=== PATIENT | male | born 1965 | race Two or more races ===

== ENCOUNTER 2024-10-02 11:19 | Emergency (ER) | payer MEDICAID, SELFPAY ==
[2024-10-02 11:20] VITALS: BMI 31.8
--- NOTE | 2024-10-02 11:30 | XR_ITS ---
Examination: Duplex scan of the lower extremity, unilateral left Date and time of exam: October 02, 2024 1222 hours INDICATIONS: Left leg swelling beginning 3 days ago Technique: Duplex scan of the extremity veins using B-mode/grayscale imaging and Doppler spectral analysis and color flow Attention is directed to internal echogenicity, compression and augmentation involving these veins, color flow assessment, spectral analysis Findings: Major deep venous structures in the extremity demonstrate normal course and caliber. There is no evidence of deep vein thrombosis. Normal color flow and spectral analysis Impression: Negative for DVT..
[2024-10-02 11:36] VITALS: BP 133/85; PULSE 81; RESP 18; TEMP 37; O2SAT 97
[2024-10-02 12:26] LABS: Basophils # (Auto) 0.0 Thou/mm3 (0.0-0.2); Basophils % (Auto) 1 % (0-2.5); Eosinophils # (Auto) 0.1 Thou/mm3 (0.0-0.5); Eosinophils % (Auto) 1 % (0-10); Hematocrit 42.4 % (41.0-53.0); Hemoglobin 14.4 g/dL (13.5-16.0); Immature Granulocytes Auto 0.02 Thou/mm3 (0.00-0.00); Lymphocytes # (Auto) 1.5 Thou/mm3 (1.0-4.8); Lymphocytes % (Auto) 24 % (10-50); Mean Corpuscular HGB Conc 34.0 g/dl (31.0-37.0); Mean Corpuscular Hemoglobin 29.6 pg (25.0-35.0); Mean Corpuscular Volume 87 fL (80-100); Monocytes # (Auto) 0.8 Thou/mm3 (0.0-0.8); Monocytes % (Auto) 12 % (0-12); Neutrophils # (Auto) 3.9 Thou/mm3 (1.8-7.7); Neutrophils % (Auto) 62 % (37-80); Nucleated Red Blood Cell # 0.00 Thou/mm3 (0.00-0.00); Nucleated Red Blood Cell % 0 /100 WBC (0); Platelet Count 229 Thou/mm3 (140-440); RDW Standard Deviation 40.8 fL (35.1-43.9); Red Blood Count 4.86 Miln/mm3 (4.50-5.90); White Blood Count 6.3 Thou/mm3 (3.8-10.6)
[2024-10-02 12:45] LABS: INR 1.0 (0.9-1.3); Partial Thromboplastin Time 29.1 Seconds (22.0-36.0); Prothrombin Time 11.2 Seconds (9.0-12.2)
[2024-10-02 12:54] LABS: Alanine Aminotransferase 20 U/L (10-49); Albumin, Serum 4.5 gm/dL (3.5-5.0); Albumin/Globulin Ratio 1.5 (1.2-2.2); Alkaline Phosphatase 78 U/L (46-116); Anion Gap 10 (7-16); Aspartate Amino Transferase 18 U/L (0-34); BUN/Creatinine Ratio 8 Ratio (12-20); Bilirubin,Total 0.4 mg/dL (0.3-1.2); Blood Urea Nitrogen 9 mg/dL (9-23); Calcium 9.4 mg/dL (8.3-10.6); Calcium (Corrected) 9.4 mg/dL (8.5-10.1); Carbon Dioxide 27.9 mMol/L (20.0-31.0); Chloride 103 mMol/L (98-107); Creatinine (Component) 1.1 mg/dL (0.6-1.3); Estimated Creatinine Clearance 78.5 mL/min (>60); Globulin 3.0 gm/dL (2.3-3.5); Glucose 95 mg/dL (74-106); Osmolality,Calculated 279 (275-295); Potassium 4.1 mMol/L (3.4-5.1); Sodium 141 mMol/L (136-145); Total Protein 7.5 gm/dL (5.7-8.2); eGFR > 60 See Note
--- NOTE | 2024-10-02 13:13 | EDNOTE_ITS ---
<Statement entered by Olivia Martínez MD - 10/03/24 07:10> As co-signing physician, I was present and available for consult prn. I concur with the plan and care as documented by the midlevel provider. ED General RME/HPI General Chief complaint: General Adult/Misc Complain Stated complaint: R/O BLOOD CLOT L) THIGH; SENT BY PCP IN CLINIC Time Seen by Provider: 10/02/24 11:27 Arrival date/time: 10/02/24 11:19 CC: Left upper inner thigh redness and tenderness to palpation HPI ongoing for the past 3 to 4 days. 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 Patient denies any calf pain or knee pain does not on any blood thinners no other complaints at this time including shortness of breath chest pain or difficulty breathing Related Data Previous Rx's ?Medication ?Instructions ?Recorded [id number]-[id number] 250 1 tab PO TID PRN he adache #20 tabs 07/28/21 mg-250 mg-65 mg tablet (Migraine Formula) ibuprofen 800 mg tablet 800 mg PO TID PRN pain #30 t abs 05/28/23 tamsulosin 0.4 mg capsule (Flomax) 0.4 mg PO QDAY #14 caps 05/28/23 prednisone 20 mg tablet See Taper PO BID 3 days #6 t abs 10/02/24 Allergies Allergy/AdvReac Type Severity Reaction Status Date / Time No Known Allergies Allergy Verified 10/02/24 11:22 Review of Systems Review of Systems Narrative Review of Systems: GEN: No fever, no chills, no weight loss EYES: No discharge, no visual changes, no pain HEENT: No ear pain, no congestion, no sore throat PULM: No shortness of breath, no cough, no congestion CV: No chest pain, no dyspnea on exertion, no palpitations GI: No nausea, no vomiting, no diarrhea, no pain, no constipation : No frequency, no urgency, no dysuria MUSC/SKEL: No joint pain, no back pain SKIN: No rash PSYCH: No hallucinations, no depression HEME/LYMPH: No easy bleeding or bruising tendencies NEURO: No weakness, no headache Past Medical History Past Medical History CARDIAC: Positive Hypertension; Negative Cardiac Disorders or Congestive Heart Failure RESPIRATORY: Negative Chronic Obstructive Pulmonary Disease (COPD) or Asthma GENITOURINARY: Negative Renal Disease ENDOCRINE: Negative Diabetes Mellitus Type 1 or Diabetes Mellitus Type 2 HEMATOLOGIC: Negative Sickle Cell Disease Social History SMOKING STATUS: Never smoker ED Exam Narrative Physical exam: [General: Obese not in cot no acute distress Head normocephalic HEENT: Within acceptable limits Neck is supple nontender Chest equal chest rise nontender to palpation Respiratory: Clear to auscultation no wheezes crackles or rubs CV: Rate rhythm is regular no murmurs rubs or clicks Abdomen is distended secondary to body habitus soft nontender no masses positive bowel sounds all 4 quadrants Back: No CVA tenderness no spinous process tenderness from cervical spine thoracic and lumbar spine Skin: Small circular irregular pattern of mildly erythematous skin that is tender to palpation on the left medial thigh no induration no masses appreciated underneath no streaking. Otherwise skin is intact no petechiae rash induration ulceration or crepitus Extremities: Moving all extremity against resistance cap refill less than 2 seconds neurosensory intact Neuro: Awake alert oriented x3 Glascow coma 15 no focal deficits] Course Quality Measures none Orders Category Date Time Status US venous doppler LE LT Stat Exams 10/02/24 11:30 Completed CBC Stat Lab 10/02/24 11:49 Completed CMP [Comprehensive Metabolic Panel] Stat Lab 10/02/24 11:49 Completed PT [Prothrombin Time with INR] Stat Lab 10/02/24 11:49 Completed PTT [Partial Thromboplastin Time] Stat Lab 10/02/24 11:49 Completed Vital Signs Vital signs: Vital Signs Temperature 98.6 F 10/02/24 11:36 Pulse Rate 81 10/02/24 11:36 Respiratory Rate 18 10/02/24 11:36 Blood Pressure 133/85 H 10/02/24 11:36 Pulse Oximetry (%) 97 10/02/24 11:36 Oxygen Delivery Method Room Air 10/02/24 11:36 Discharge Plan Plan Patient Disposition: HOME (Self Care) Patient condition on transfer: Stable Prescriptions/Referrals Prescriptions/Med Rec: New prednisone 20 mg tablet See Taper PO BID 3 Days Qty: 6 0RF Taper: Prednisone Taper 20 mg DAILY for 2 Days and 0 Hour 10 mg DAILY for 2 Days and 0 Hour 5 mg DAILY for 7 Days and 0 Hour No Action Migraine Formula 250-250-65 mg tablet 1 tab PO TID PRN (Reason: headache ) Qty: 20 0RF tamsulosin [Flomax] 0.4 mg capsule 0.4 mg PO QDAY Qty: 14 0RF ibuprofen 800 mg tablet 800 mg PO TID PRN (Reason: pain) Qty: 30 0RF Referrals: Dragan Kahn MD [Primary Care Provider] - In 1 week Problem List Clinical Impression: Rash Patient/Caregiver Discharge Instructions Print Language: Irish Stand Alone Forms: Kinga Award Info., Work/School Release, Patient Portal Info Letter PA/SKIP OPERATOR Supervising Physician PA/SKIP OPERATOR Supervising Physician: Kwabena Herrera ENP [facility] Clinical Information Provided by patient Medical Records Reviewed [facility] Meds/Rx Considered, not Ordered None Labs/Rad/Tests considered, not Ordered None Chronic Illness/Social Conditions which may negatively complicate care or outcome(s)-explain: None or not applicable EKG EKG not done Lab Interpretation Lab(s) interpretation(s): CBC shows no acute leukocytosis anemia thrombocytopenia CMP shows no acute electrolyte imbalances renal impairment transaminitis or T. bili elevation coags within acceptable limits. Imaging Provider imaging interpretation(s): Ultrasound the left lower extremity is negative for DVT. Medication Administration(s) I am not sure this is what is going on either allergic reaction or cellulitis patient is already been started on 7-day course of antibiotics from the PCP will discharge the patient home with steroids Diagnosis Differential diagnosis: DVT cellulitis hives Dispositon Disposition: Discharge Home
== END 2024-10-02 13:29 | disposition home or self-care (01) ==
PROVIDERS: Registered Nurse General Practice; Emergency Provider Emergency Medicine; PCP Family Medicine
DX: L53.8 Other specified erythematous conditions (principal); R21 Rash and other nonspecific skin eruption; M79.89 Other specified soft tissue disorders
CPT/HCPCS: 36415; 80053; 85025; 85610; 85730; 93971; 99283